=== PATIENT | female | born 1995 | race Two or more races ===

== ENCOUNTER 2017-04-26 18:09 | Emergency (ER) | payer SELFPAY ==
[~2017-04-26] VITALS: Ht 165.1 cm; Wt 53.1 kg
[2017-04-26 18:16] VITALS: BP 121/83
[2017-04-26] MEDS ORDERED: LIDOCAINE 2% 20 ML MDV ONE (18:29)
[2017-04-26] MEDS ORDERED: TDAP [DIPH/PERTUSSIS/TET] 0.5 ML VIAL IM ONE ×2 (18:30→18:48)
--- NOTE | 2017-04-26 18:51 | NUR ---
PT REFUSED TDAP DESPITE EDUCATION ON BENEFITS/RISKS.
[2017-04-26] MEDS ORDERED: LIDOCAINE HCL/PF 1% 30 ML SDV ONE (19:26)
[2017-04-26] MEDS ORDERED: IBUPROFEN 600 MG TABLET PO ONE ×2 (20:00→20:02)
[2017-04-26] MEDS ORDERED: CEPHALEXIN MONOHYDRATE 500 MG CAPSULE PO ONE ×2 (20:00→20:01)
== END 2017-04-26 20:24 | disposition home or self-care (01) ==
LOC: ER 18:11
DX: S01.511A Laceration without foreign body of lip, initial encounter (principal); Z23 Encounter for immunization; V19.9XXA Pedal cyclist (driver) (passenger) injured in unspecified traffic accident, initial encounter; Y93.55 Activity, bike riding; Y92.89 Other specified places as the place of occurrence of the external cause; Y99.9 Unspecified external cause status
CPT/HCPCS: 90715; A4606; A6402; J3490; Z7610

== ENCOUNTER 2017-05-09 19:16 | Emergency (ER) | payer SELFPAY ==
[~2017-05-09] VITALS: Ht 165.1 cm; Wt 54.4 kg
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
--- NOTE | 2017-05-09 19:28 | NUR ---
dr chapman at bedside for eval.
--- NOTE | 2017-05-09 19:35 | NUR ---
u/s tech at bedside for pelvic ultrasound.
--- NOTE | 2017-05-09 19:47 | NUR ---
iv line started blood drawn and sent to lab.
[2017-05-09 19:54] LABS: BASOPHILS % (AUTO) 0.5 % (0.0-2.0); EOSINOPHILS % (AUTO) 0.4 % (0.0-6.0); HEMATOCRIT 38 % (33-45); HEMOGLOBIN 12.7 g/dL (11.5-14.8); LYMPHOCYTES # (AUTO) 1.4 /CMM (0.8-4.8); LYMPHOCYTES % (AUTO) 14.6 % (20.0-44.0); MEAN CORPUSCULAR HEMOGLOBIN 29 PG (26.0-33.0); MEAN CORPUSCULAR HGB CONC 33 g/dl (31.0-36.0); MEAN CORPUSCULAR VOLUME 88 fL (82-100); MONOCYTES # (AUTO) 0.6 /CMM (0.1-1.30); NEUTROPHILS # (AUTO) 7.6 /CMM (1.8-8.9); NEUTROPHILS % (AUTO) 78.5 % (43.0-81.0); PLATELET COUNT (AUTO) 269 /CMM (150-450); RDW COEFFICIENT OF VARIATION 11.9 (11.5-15.0); RED BLOOD CELL COUNT(AUTO) 4.38 MIL/uL (4.0-5.2); WHITE BLOOD COUNT (AUTO) 9.6 K/uL (4.3-11.0)
[2017-05-09 20:01] LABS: CALCIUM, SERUM 9.2 mg/dL (8.5-10.1); CREATININE 0.6 mg/dL (0.6-1.3); POTASSIUM 3.5 mmol/L (3.5-5.1)
[2017-05-09 20:08] LABS: ALBUMIN 3.4 g/dL (3.4-5.0); BILIRUBIN,DIRECT 0.2 mg/dL (0.0-0.2); BILIRUBIN,TOTAL 0.4 mg/dL (0.2-1.0); TOTAL PROTEIN, SERUM 6.7 g/dL (6.4-8.2)
[2017-05-09 21:43] VITALS: BP 132/84
== END 2017-05-09 21:43 | disposition home or self-care (01) ==
LOC: ER 19:17
DX: O9A.212 Injury, poisoning and certain other consequences of external causes complicating pregnancy, second trimester (principal); O20.8 Other hemorrhage in early pregnancy; S30.1XXA Contusion of abdominal wall, initial encounter; Z3A.15 15 weeks gestation of pregnancy; V19.9XXA Pedal cyclist (driver) (passenger) injured in unspecified traffic accident, initial encounter; Y93.55 Activity, bike riding; Y92.89 Other specified places as the place of occurrence of the external cause; Y99.8 Other external cause status
CPT/HCPCS: 36415; 76805-TC; 80048-TC; 80076-TC; 84702-TC; 85025-TC; 86850-TC; A4606; Z7610

== ENCOUNTER 2019-08-20 20:10 | Emergency (ER) | payer SELFPAY ==
[~2019-08-20] VITALS: Ht 157.5 cm; Wt 68.0 kg
[2019-08-20 20:14] VITALS: BP 142/97
[2019-08-20] MEDS ORDERED: IBUPROFEN 600 MG TABLET PO ONE ×2 (22:00→22:09)
--- NOTE | 2019-08-20 22:15 | NUR ---
BIBSELF. TO ER BED 15. AAOX4. NO RESP DISTRESS NOTED. AMBULATORY. C/O L ANKLE PAIN. PT REPORTS THAT PAIN IS INTERMITENT AND NOT PRESENT AT THIS TIME. NOTED REDNESS AND SLIGHT SWELLING. MD WAS AT BEDSIDE FOR EVAL. ORDERS RECEIVED NOTED AND CARRIED OUT.
--- NOTE | 2019-08-20 22:37 | NUR ---
Patient discharged to home in stable condition. Written and verbal after care instructions given. Patient verbalizes understanding of instruction. Pt ambulatory with a use of crutches.
--- NOTE | 2019-08-20 22:39 | NUR ---
Pt does not want her vital sign to be taken for discharge. pt is stable.NAD noted
== END 2019-08-20 22:40 | disposition home or self-care (01) ==
LOC: ER 20:13
DX: S93.492A Sprain of other ligament of left ankle, initial encounter (principal); F15.10 Other stimulant abuse, uncomplicated; F17.200 Nicotine dependence, unspecified, uncomplicated; Z60.2 Problems related to living alone; W01.0XXA Fall on same level from slipping, tripping and stumbling without subsequent striking against object, initial encounter; Y93.89 Activity, other specified; Y92.89 Other specified places as the place of occurrence of the external cause; Y99.8 Other external cause status
CPT/HCPCS: 73610-TC

== ENCOUNTER 2021-01-20 04:48 | Emergency (ER) | payer MEDICAID, OTHER ==
[~2021-01-20] VITALS: Ht 160 cm; Wt 79.4 kg
[2021-01-20 04:49] VITALS: BP 156/103
[2021-01-20] MEDS ORDERED: LORAZEPAM 1 MG TABLET ONE (04:59)
[2021-01-20] MEDS: LORAZEPAM 1 MG TABLET PO ONE (05:06)
[2021-01-20] MEDS ORDERED: LORA-259 PO (05:35)
== END 2021-01-20 05:57 | disposition home or self-care (01) ==
LOC: ER 04:51
DX: F41.9 Anxiety disorder, unspecified (principal); F17.200 Nicotine dependence, unspecified, uncomplicated; R94.31 Abnormal electrocardiogram [ECG] [EKG]; Z60.2 Problems related to living alone

== ENCOUNTER 2023-05-02 21:16 | Emergency (ER) | payer OTHER ==
[~2023-05-02] VITALS: Ht 160 cm; Wt 79.4 kg
[~2023-05-02 21:16] MED LIST: LORA-259 PO
[2023-05-02 21:22] VITALS: TEMP 98.1
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
[2023-05-02 21:59] VITALS: BP 104/88; O2SAT 100
--- NOTE | 2023-05-02 22:29 | NUR ---
urine collected and sent to lab
--- NOTE | 2023-05-02 22:29 | NUR ---
phleb at bedside
== END 2023-05-02 22:36 | disposition left against medical advice (07) ==
LOC: ER 21:18
DX: F41.9 Anxiety disorder, unspecified (principal); F17.200 Nicotine dependence, unspecified, uncomplicated; Z60.2 Problems related to living alone
CPT/HCPCS: 84703-TC

== ENCOUNTER 2024-11-13 01:04 | Emergency (ER) | payer OTHER ==
[~2024-11-13] VITALS: Ht 160 cm; Wt 84.4 kg
[2024-11-13] MEDS ORDERED: ONDANSETRON HCL/PF 4 MG/2 ML VIAL ONE (02:02)
[2024-11-13] MEDS: ONDANSETRON HCL/PF 4 MG/2 ML VIAL IVP ONE (02:34)
[2024-11-13] MEDS: IV NS 0.9% 500 ML BAG IV ONE (02:34)
[2024-11-13 03:32] VITALS: BP 132/78; TEMP 98.3; O2SAT 100
== END 2024-11-13 03:33 | disposition home or self-care (01) ==
LOC: ER 01:05
DX: N80.03 Adenomyosis of the uterus (principal); N83.201 Unspecified ovarian cyst, right side; N83.202 Unspecified ovarian cyst, left side; F17.200 Nicotine dependence, unspecified, uncomplicated; N93.8 Other specified abnormal uterine and vaginal bleeding; Z60.2 Problems related to living alone
CPT/HCPCS: 99284; 74176; 76856; J7040; J2405

== ENCOUNTER 2025-03-25 22:31 | Emergency (ER) | payer OTHER ==
[~2025-03-25] VITALS: Ht 162.6 cm; Wt 74.8 kg
[2025-03-25 23:49] LABS: BASOPHILS % (AUTO) 0.4 % (0.0-2.0); EOSINOPHILS % (AUTO) 0.1 % (0.0-6.0); HEMATOCRIT 41 % (33-45); HEMOGLOBIN 13.8 g/dL (11.5-14.8); LYMPHOCYTES # (AUTO) 0.8 K/uL (0.8-4.8); LYMPHOCYTES % (AUTO) 9.6 % (20.0-44.0); MEAN CORPUSCULAR HEMOGLOBIN 30 PG (26.0-33.0); MEAN CORPUSCULAR HGB CONC 34 g/dl (31.0-36.0); MEAN CORPUSCULAR VOLUME 88 fL (82-100); MONOCYTES # (AUTO) 0.9 K/uL (0.1-1.30); MONOCYTES % (AUTO) 9.8 % (2.0-12.0); NEUTROPHILS # (AUTO) 7.1 K/uL (1.8-8.9); NEUTROPHILS % (AUTO) 80.1 % (43.0-81.0); PLATELET COUNT (AUTO) 280 K/uL (150-450); RED BLOOD CELL COUNT(AUTO) 4.64 MIL/uL (4.0-5.2); WHITE BLOOD COUNT (AUTO) 8.8 K/uL (4.3-11.0)
[2025-03-26 00:05] LABS: CALCIUM, SERUM 8.3 mg/dL (8.5-10.1); CARBON DIOXIDE 28 mmol/L (21-32); CHLORIDE 103 mmol/L (98-107); CREATININE 0.7 mg/dL (0.6-1.3); GLUCOSE 138 mg/dL (74-106); POTASSIUM 3.7 mmol/L (3.5-5.1); SODIUM SERUM 139 mmol/L (136-145); UREA NITROGEN, BLOOD 10 mg/dL (7-18)
[2025-03-26 00:08] LABS: CREATINE KINASE, TOTAL 74 U/L (26-192)
[2025-03-26 00:14] LABS: ALANINE AMINOTRANSFERASE 25 U/L (12-78); ALBUMIN 3.5 g/dL (3.4-5.0); ALKALINE PHOSPHATASE 85 U/L (46-116); ASPARTATE AMINOTRANSFERASE 20 U/L (15-37); BILIRUBIN,TOTAL 0.3 mg/dL (0.2-1.0); NT-PRO BNP 7 pg/mL (0-125); TOTAL PROTEIN, SERUM 7.4 g/dL (6.4-8.2)
[2025-03-26 00:15] LABS: ALCOHOL, BLOOD < 3 mg/dL (0-10)
[2025-03-26] MEDS ORDERED: ONDA4TAB5 PO (03:40)
[2025-03-26 04:12] VITALS: BP 124/78; TEMP 98.9; O2SAT 98
== END 2025-03-26 04:13 | disposition home or self-care (01) ==
LOC: ER 22:38
DX: R42 Dizziness and giddiness (principal); R53.1 Weakness; F17.200 Nicotine dependence, unspecified, uncomplicated; R06.02 Shortness of breath; Z79.899 Other long term (current) drug therapy; Z60.2 Problems related to living alone
CPT/HCPCS: 36415; 71045-TC; 80053-TC; 82550-TC; 83880; 84484-TC; 85025-TC; G0480

== ENCOUNTER 2025-08-04 22:32 | Emergency (ER) | payer OTHER ==
[~2025-08-04] VITALS: Ht 162.6 cm; Wt 72.6 kg
[~2025-08-04 22:32] MED LIST changes: +ONDA4TAB5 PO
[2025-08-04 23:13] VITALS: BP 132/86; TEMP 97.8; O2SAT 100
[2025-08-04] MEDS ORDERED: HYDR-4209 PO (23:45)
[2025-08-04] MEDS ORDERED: AMOX-430 PO (23:45)
[2025-08-05] MEDS ORDERED: HYDROCODONE/APAP 5/325MG TABLET ONE (00:01)
[2025-08-05] MEDS: HYDROCODONE/APAP 5/325MG TABLET PO ONE (00:04)
== END 2025-08-05 00:05 | disposition home or self-care (01) ==
LOC: ER 22:35
DX: K02.9 Dental caries, unspecified (principal); F17.200 Nicotine dependence, unspecified, uncomplicated; M27.3 Alveolitis of jaws